=== PATIENT | male | born 1995 | race African-American/Black ===

== ENCOUNTER 2018-12-12 08:30 | Emergency (ER) | payer SELFPAY ==
[~2018-12-12] VITALS: Ht 180.3 cm; Wt 72.6 kg
[2018-12-12] MEDS: FAMOTIDINE 20 MG/2 ML VIAL IVP ONE ×2 (08:45→09:02)
[2018-12-12] MEDS ORDERED: IV NORMAL SALINE 1000ML BAG 1,000 ML IV ONE (08:45)
[2018-12-12] MEDS: fentaNYL PF VIAL 100 MCG/2 ML VIAL IV ONE ×2 (08:45→09:03)
[2018-12-12] MEDS: ONDANSETRON PF 4 MG/2 ML VIAL. IV ONE ×2 (08:45→09:02)
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
[2018-12-12 09:00] VITALS: BP 106/58
[2018-12-12 09:03] LABS: BASO % 0 % (0-3); EOS # 0.1 x10^3/uL (0.0-0.7); EOS % 2 % (0-3); HEMOGLOBIN 13.3 g/dL (13.0-17.5); LYMPH # 1.2 x10^3/uL (1.0-4.8); LYMPH % 24 % (24-48); MEAN CORPUSCULAR HEMOGLOBIN 24 pg (25-35); MEAN CORPUSCULAR HGB CONC 32 g/dL (31-37); MEAN CORPUSCULAR VOLUME 75 fL (79-100); MONO # 0.3 x10^3/uL (0.0-1.1); MONO % 6 % (0-9); NEUT # 3.6 x10^3uL (1.8-7.7); NEUT % 68 % (31-73); PLATELET COUNT 128 x10^3/uL (140-400); RED BLOOD COUNT 5.64 x10^6/uL (4.30-5.70); RED CELL DISTRIBUTION WIDTH 15.5 % (11.5-14.5); WHITE BLOOD COUNT 5.3 x10^3/uL (4.0-11.0)
[2018-12-12 09:10] LABS: GFR 111.1; POTASSIUM 4.2 mmol/L (3.5-5.1)
[2018-12-12] MEDS ORDERED: IOHEXOL 300 MG/ML 100ML VIAL. IV ONE (09:15)
[2018-12-12 09:18] LABS: ALBUMIN 4.3 g/dL (3.4-5.0); ALBUMIN/GLOBULIN RATIO 1.2 (1.0-1.7); TOTAL BILIRUBIN 1.8 mg/dL (0.2-1.0); TOTAL PROTEIN 7.8 g/dL (6.4-8.2)
[2018-12-12] MEDS ORDERED: CONTRAST GIVEN. MC PRN (09:30)
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
[2018-12-12] MEDS ORDERED: DICY20TA3 PO (10:34)
[2018-12-12] MEDS ORDERED: ONDA4TAB12 PO (10:34)
== END 2018-12-12 10:50 | disposition home or self-care (01) ==
LOC: ER 08:30
DX: R11.2 Nausea with vomiting, unspecified (principal); R19.7 Diarrhea, unspecified; R10.84 Generalized abdominal pain
CPT/HCPCS: 36415; 74177; 80053; 83690; 85025; 96360; 99284; G0480; J7030; Q9967; J2405; J3010; J3490